=== PATIENT | male | born 1955 | race Caucasian/White ===

== ENCOUNTER → 2017-02-09 | Outpatient (CLI) | payer OTHER ==
--- NOTE | 2017-02-09 15:17 | XR ---
EXAMINATION TYPE: XR hand complete LT DATE OF EXAM: 02/09/2017 CLINICAL HISTORY: pain TECHNIQUE: Frontal, lateral and oblique images of the left hand are obtained. COMPARISON: None. FINDINGS: There is no acute fracture/dislocation evident. The joint spaces appear within normal limi ts. The overlying soft tissue appears unremarkable. IMPRESSION: There is no acute fracture or dislocation. ICD 10 NO FRACTURE, INITIAL EVALUATION
== END | disposition home or self-care (01) ==
LOC: RADXRMAIN 14:56
PROVIDERS: ATTEND Emergency Medicine
DX: S67.22XA Crushing injury of left hand, initial encounter (principal)

== ENCOUNTER 2017-06-24 07:55 | Day surgery (SDC) | payer BC ==
[2017-06-16 16:01] VITALS: BMI 28.8
[~2017-06-24 07:55] MED LIST: LACTATED RINGERS 1,000 ML IV SCH
[2017-06-24 08:18] LABS: Glucose,Whole Blood 172 mg/dL (75-99)
[2017-06-24] MEDS ORDERED: PROPOFOL 10 MG/ML 20 ML VIAL IV ONE (09:01)
[2017-06-24] MEDS ORDERED: fentaNYL (PF) 50 MCG/ML 2 ML AMP ONE (09:01)
--- NOTE | 2017-06-24 09:36 | P.PCN ---
Date of Procedure: 06/24/17 Procedure(s) Performed: Procedure: Colonoscopy and biopsy. Preoperative diagnosis: Screening for neoplasia. Postoperative diagnosis: 1. Sigmoid diverticulosis with no evidence of acute diverticulitis or strictures. 2. Diminutive polyp around the hepatic flexure biopsied. 3. No large polyps, cancer or bleeding. Preparation: HalfLytely prep. Sedation: Was provided by anesthesia. Brief clinical history: The patient is 62-year-old male who is referred for this evaluation for screening for neoplasia. He had a prior exam more than 20 years ago. He has no abdominal complaints, bleeding or anemia. Procedure: With the patient on his left lateral decubitus position and after informed consent and adequate sedation, the perianal area was inspected and it did not show any fissures or fistulas. There were no masses felt on digital rectal examination. The Olympus CFQ 160L video colonoscope was then inserted in the rectum in the usual fashion and advanced to the cecum. There was a diminutive polyp around the hepatic flexure which was biopsied. There were no large polyps or cancer. The mucosa appeared healthy. Several diverticular orifices were seen scattered in the sigmoid with no evidence of acute diverticulitis or strictures. I retroflexed the endoscope in the rectum before the endoscope was withdrawn. The patient tolerated the procedure well. Plan: The patient was reassured. Discussed dietary measures. Will await pathology results. I anticipate repeating this colonoscopy in 5 years depending on his pathology results. He will follow up with you as planned.
[2017-06-24 16:30] VITALS: BP 134/94; PULSE 74; RESP 18; TEMP 97.3
== END 2017-06-24 10:15 | disposition home or self-care (01) ==
LOC: ORWHC2ENDO 07:55
DX: Z12.11 Encounter for screening for malignant neoplasm of colon (principal); K63.5 Polyp of colon; K57.30 Diverticulosis of large intestine without perforation or abscess without bleeding; K21.9 Gastro-esophageal reflux disease without esophagitis; E11.9 Type 2 diabetes mellitus without complications; I10 Essential (primary) hypertension; I25.10 Atherosclerotic heart disease of native coronary artery without angina pectoris; I25.2 Old myocardial infarction; Z79.82 Long term (current) use of aspirin; Z79.84 Long term (current) use of oral hypoglycemic drugs; Z79.899 Other long term (current) drug therapy; Z87.891 Personal history of nicotine dependence; Z95.5 Presence of coronary angioplasty implant and graft
CPT/HCPCS: 45380; 88305; J3010; J2704

== ENCOUNTER 2020-09-20 09:06 | Emergency (ER) | payer BC ==
[2020-09-20] MEDS ORDERED: SODIUM CHLORIDE 0.9% 1,000 ML IV STA (09:28)
[2020-09-20] MEDS ORDERED: METOCLOPRAMIDE 5 MG/ML 2 ML VIAL IVP STA (09:30)
[2020-09-20] MEDS ORDERED: MECLIZINE 12.5 MG TAB PO STA (09:30)
[2020-09-20 09:58] LABS: Basophils % (A) 0 %; Eosinophils # (A) 0.1 k/uL (0-0.7); Eosinophils % (A) 2 %; HCT 42.6 % (39.0-53.0); HGB 14.6 gm/dL (13.0-17.5); Lymphocytes % (A) 17 %; MCH 28.9 pg (25.0-35.0); MCHC 34.2 g/dL (31.0-37.0); MCV 84.3 fL (80.0-100.0); Mean Platelet Volume 7.1; Monocytes # (A) 0.4 k/uL (0-1.0); Monocytes % (A) 6 %; Neutrophils # (A) 4.3 k/uL (1.3-7.7); Neutrophils % (A) 74 %; Platelet Count 204 k/uL (150-450); RBC 5.05 m/uL (4.30-5.90); RDW 14.1 % (11.5-15.5); WBC 5.8 k/uL (3.8-10.6)
[2020-09-20 10:07] LABS: INR 0.9 (<1.2); Partial Thromboplastin Time 23.3 sec (22.0-30.0); Prothrombin Time 9.7 sec (9.0-12.0)
[2020-09-20 10:09] LABS: ALT 27 U/L (4-49); AST 27 U/L (17-59); African American GFR (CKD) >90 (>60 ml/min/1.73 sqM); Alkaline Phosphatase 94 U/L (38-126); Anion Gap 8 mmol/L; Blood Urea Nitrogen 19 mg/dL (9-20); Calcium 9.5 mg/dL (8.4-10.2); Carbon Dioxide 28 mmol/L (22-30); Chloride 102 mmol/L (98-107); Glucose 224 mg/dL (74-99); Non-African American GFR(CKD) >90 (>60 ml/min/1.73 sqM); Potassium 4.3 mmol/L (3.5-5.1); Sodium 138 mmol/L (137-145); Total Bilirubin 1.2 mg/dL (0.2-1.3); Total Protein 6.7 g/dL (6.3-8.2)
--- NOTE | 2020-09-20 10:09 | XR ---
EXAMINATION TYPE: XR chest 2V DATE OF EXAM: 09/20/2020 COMPARISON: None HISTORY: 65-year-old male syncope TECHNIQUE: AP and lateral views FINDINGS: Heart borderline enlarged. Some focal patchy opacity posterior base on the lateral view and also ayan pheral right midlung on the frontal view. No pleural effusion. IMPRESSION: Some patchy opacity peripheral right midlung and posterior base. Early developing infiltrates not exc luded.
--- NOTE | 2020-09-20 10:27 | ED ---
General Adult HPI - General Chief complaint: Dizziness Stated complaint: Dizziness, syncope Time Seen by Provider: 09/20/20 09:16 Source: patient Mode of arrival: ambulatory Limitations: no limitations - History of Present Illness Initial comments: Patient is a 65-year-old male, history of diabetes, hypertension, NC, presenting to the emergency department after he had 2 syncopal events at work today. Patient states last night when he was trying to go to sleep he turned his head over to the side and the broom started moving. Patient states he was able to lay flat on his back without symptoms but every time he would move on the side to symptoms started again. Patient states he was able to fall asleep, he felt better this morning so he went to work. 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 Patient states when he came to and rested in the chair a little bit he felt improvement but then stood up and had another event which brought him to his knees. Patient's coworkers then called EMS for transport. He states currently at this time he is feeling a little lightheaded but the broom is not spinning at this time. He is nauseous, no chest pain or shortness of breath. He denies a blurry vision, no recent fevers or chills. He states he was diagnosed with Covid on 09/04/2020. He states his symptoms have been mild and he feels like he has recovered. He denies any changes in the medications. He has no further complaints. Upon arrival to the ER his vitals are stable. - Related Data Home Medications Medication Instructions Recorded Confirmed Aspirin 162 mg PO DAILY 06/16/17 09/20/20 Atorvastatin Calcium [Lipitor] 40 mg PO HS 06/16/17 09/20/20 Isosorbide Mononitrate ER [Imdur] 60 mg PO DAILY 06/16/17 09/20/20 glipiZIDE [Glucotrol] 10 mg PO AC-BID 06/16/17 09/20/20 Albuterol Sulfate [Proair Hfa] 2 puff INHALATION RT-Q4H PRN 09/20/20 09/20/20 Cholecalciferol [Vitamin D3 (25 50 mcg PO DAILY 09/20/20 09/20/20 Mcg = 1000 Iu)] Cyanocobalamin [Vitamin B-12] 500 mcg PO DAILY 09/20/20 09/20/20 Losartan Potassium 100 mg PO DAILY 09/20/20 09/20/20 Metoprolol Tartrate [Lopressor] 75 mg PO BID 09/20/20 09/20/20 Nitroglycerin Sl Tabs [Nitrostat] 0.4 mg SUBLINGUAL Q5M PRN 09/20/20 09/20/20 hydroCHLOROthiazide 25 mg PO DAILY 09/20/20 09/20/20 Previous Rx's Medication Instructions Recorded Meclizine [Antivert] 25 mg PO BID PRN #20 tab 09/20/20 Allergies Allergy/AdvReac Type Severity Reaction Status Date / Time No Known Allergies Allergy Verified 09/20/20 10:35 Review of Systems ROS Statement: Those systems with pertinent positive or pertinent negative responses have been documented in the HPI. ROS Other: All systems not noted in ROS Statement are negative. Past Medical History Past Medical History: Diabetes Mellitus, Hyperlipidemia, Hypertension, Myocardial Infarction (NC) Last Myocardial Infarction Date:: 2001 History of Any Multi-Drug Resistant Organisms: None Reported Past Surgical History: Heart Catheterization With Stent Additional Past Surgical History / Comment(s): heart stents x2 Past Anesthesia/Blood Transfusion Reactions: No Reported Reaction Additional Past Anesthesia/Blood Transfusion Reaction / Comment(s): states "had excruciating pain in the abdomen post colonoscopy in the past." Date of Last Stent Placement:: 2001 Past Psychological History: No Psychological Hx Reported Smoking Status: Former smoker Past Alcohol Use History: None Reported Past Drug Use History: None Reported - Past Family History Mother Family Medical History: No Reported History Father Family Medical History: Cancer Additional Family Medical History / Comment(s): liver General Exam - General Exam Comments Initial Comments: GENERAL: Patient is well-developed and well-nourished. Patient is nontoxic and in no acute distress. HEAD: Atraumatic, normocephalic. EYES: Pupils equal round and reactive to light, extraocular movements intact, sclera anicteric, conjunctiva are normal. Eyelids were unremarkable. ENT: TMs normal, nares patent, oropharynx clear without exudates. Moist mucous membranes. NECK: Normal range of motion, supple without lymphadenopathy or JVD. LUNGS: Unlabored respirations. Breath sounds clear to auscultation bilaterally and equal. No wheezes rales or rhonchi. HEART: Regular rate and rhythm without murmurs, rubs or gallops. ABDOMEN: Soft, nontender, normoactive bowel sounds. No guarding, no rebound. No masses appreciated. : Deferred MUSCULOSKELETAL: Normal extremities with adequate strength and normal range of motion, no pitting or edema. No clubbing or cyanosis. NEUROLOGICAL: Patient is alert and oriented x 3. Motor and sensory are also intact. Cranial nerves II through XII grossly intact. Symmetrical smile. Normal speech, normal gait. PSYCH: Normal mood, normal affect. SKIN: Warm, Dry, normal turgor, no rashes or lesions noted. Limitations: no limitations Course Vital Signs 09/20/20 09/20/20 09/20/20 09:11 11:25 11:29 Temperature 98 F Pulse Rate 72 70 66 Respiratory 18 18 20 Rate Blood Pressure 152/98 135/79 127/86 O2 Sat by Pulse 97 100 99 Oximetry EKG Findings - EKG Comments: EKG Findings:: Normal sinus rhythm, normal ECG, no signs of acute process. Ventricular rate 72, IL interval 148, QTC 416. Medical Decision Making - Medical Decision Making Patient is a 65-year-old male here for having syncopal event at work today. He was dizzy yesterday, symptoms seem consistent with vertigo. His exam today is unremarkable, no acute findings. EKG is normal. His vital signs are stable. Labs are normal, troponin is normal, glucose slightly elevated to 24, urine shows no evidence of infection. Chest x-ray shows some patchy opacity to perform a right midline, patient is recovering from Covid. Patient has been able to ambulate to the restroom without symptoms. His vital signs remained stable. I discussed with patient that his symptoms seem consistent with vertigo. I do recommend staying home from work until clearance from his family doctor. I will give him a prescription for meclizine. He is stable for discharge He is in agreement with this plan of care. Strict return parameters were discussed with the patient and he verbalized understanding. Case discussed with Dr. Cai. - Lab Data Result diagrams: 09/20/20 09:23 09/20/20 09:23 Lab Results 09/20/20 09/20/20 09/20/20 Range/Units 09:23 09:23 09:23 WBC 5.8 (3.8-10.6) k/uL RBC 5.05 (4.30-5.90) m/uL Hgb 14.6 (13.0-17.5) gm/dL Hct 42.6 (39.0-53.0) % MCV 84.3 (80.0-100.0) fL MCH 28.9 (25.0-35.0) pg MCHC 34.2 (31.0-37.0) g/dL RDW 14.1 (11.5-15.5) % Plt Count 204 (150-450) k/uL MPV 7.1 Neutrophils % 74 % Lymphocytes % 17 % Monocytes % 6 % Eosinophils % 2 % Basophils % 0 % Neutrophils # 4.3 (1.3-7.7) k/uL Lymphocytes # 1.0 (1.0-4.8) k/uL Monocytes # 0.4 (0-1.0) k/uL Eosinophils # 0.1 (0-0.7) k/uL Basophils # 0.0 (0-0.2) k/uL PT 9.7 (9.0-12.0) sec INR 0.9 (<1.2) APTT 23.3 (22.0-30.0) sec Sodium (137-145) mmol/L Potassium (3.5-5.1) mmol/L Chloride (98-107) mmol/L Carbon Dioxide (22-30) mmol/L Anion Gap mmol/L BUN (9-20) mg/dL Creatinine (0.66-1.25) mg/dL Est GFR (CKD-EPI)AfAm (>60 ml/min/1.73 sqM) Est GFR (CKD-EPI)NonAf (>60 ml/min/1.73 sqM) Glucose (74-99) mg/dL Calcium (8.4-10.2) mg/dL Total Bilirubin (0.2-1.3) mg/dL AST (17-59) U/L ALT (4-49) U/L Alkaline Phosphatase (38-126) U/L Troponin I (0.000-0.034) ng/mL Total Protein (6.3-8.2) g/dL Albumin (3.5-5.0) g/dL Urine Color Light Yellow Urine Appearance Clear (Clear) Urine pH 6.5 (5.0-8.0) Ur Specific [place] 1.013 (1.001-1.035) Urine Protein Negative (Negative) Urine Glucose (UA) 3+ H (Negative) Urine Ketones Negative (Negative) Urine Blood Negative (Negative) Urine Nitrite Negative (Negative) Urine Bilirubin Negative (Negative) Urine Urobilinogen <2.0 (<2.0) mg/dL Ur Leukocyte Esterase Negative (Negative) 09/20/20 09/20/20 Range/Units 09:23 09:23 WBC (3.8-10.6) k/uL RBC (4.30-5.90) m/uL Hgb (13.0-17.5) gm/dL Hct (39.0-53.0) % MCV (80.0-100.0) fL MCH (25.0-35.0) pg MCHC (31.0-37.0) g/dL RDW (11.5-15.5) % Plt Count (150-450) k/uL MPV Neutrophils % % Lymphocytes % % Monocytes % % Eosinophils % % Basophils % % Neutrophils # (1.3-7.7) k/uL Lymphocytes # (1.0-4.8) k/uL Monocytes # (0-1.0) k/uL Eosinophils # (0-0.7) k/uL Basophils # (0-0.2) k/uL PT (9.0-12.0) sec INR (<1.2) APTT (22.0-30.0) sec Sodium 138 (137-145) mmol/L Potassium 4.3 (3.5-5.1) mmol/L Chloride 102 (98-107) mmol/L Carbon Dioxide 28 (22-30) mmol/L Anion Gap 8 mmol/L BUN 19 (9-20) mg/dL Creatinine 0.76 (0.66-1.25) mg/dL Est GFR (CKD-EPI)AfAm >90 (>60 ml/min/1.73 sqM) Est GFR (CKD-EPI)NonAf >90 (>60 ml/min/1.73 sqM) Glucose 224 H (74-99) mg/dL Calcium 9.5 (8.4-10.2) mg/dL Total Bilirubin 1.2 (0.2-1.3) mg/dL AST 27 (17-59) U/L ALT 27 (4-49) U/L Alkaline Phosphatase 94 (38-126) U/L Troponin I <0.012 (0.000-0.034) ng/mL Total Protein 6.7 (6.3-8.2) g/dL Albumin 4.0 (3.5-5.0) g/dL Urine Color Urine Appearance (Clear) Urine pH (5.0-8.0) Ur Specific [place] (1.001-1.035) Urine Protein (Negative) Urine Glucose (UA) (Negative) Urine Ketones (Negative) Urine Blood (Negative) Urine Nitrite (Negative) Urine Bilirubin (Negative) Urine Urobilinogen (<2.0) mg/dL Ur Leukocyte Esterase (Negative) Disposition Clinical Impression: Vertigo, Syncope Disposition: HOME SELF-CARE Condition: Stable Instructions (If sedation given, give patient instructions): Vertigo (ED) Additional Instructions: Please return to the Emergency Department if symptoms worsen or any other concerns. May take meclizine for any further symptoms. Follow-up with your family doctor in 1-3 days. PLease stay off work until clearance from your family doctor. Prescriptions: Meclizine [Antivert] 25 mg PO BID PRN #20 tab PRN Reason: vertigo Is patient prescribed a controlled substance at d/c from ED?: No Referrals: Daryl Aguayo MD [Primary Care Provider] - 1-2 days
[2020-09-20 11:53] LABS: Appearance,Urine Clear (Clear); Bilirubin,Urine Negative (Negative); Blood,Urine Negative (Negative); Color,Urine Light Yellow; Glucose,Urine (UA) 3+ (Negative); Ketones,Urine Negative (Negative); Leukocyte Esterase,Urine Negative (Negative); Nitrite,Urine Negative (Negative); PH, Urine 6.5 (5.0-8.0); Protein,Urine Negative (Negative); Specific Gravity,Urine 1.013 (1.001-1.035); Urobilinogen,Urine <2.0 mg/dL (<2.0)
[2020-09-20 13:11] VITALS: BP 120/76; PULSE 75; RESP 18; TEMP 98.2
== END 2020-09-20 13:08 | disposition home or self-care (01) ==
LOC: EC 09:06
DX: R42 Dizziness and giddiness (principal); R55 Syncope and collapse; R11.0 Nausea; E11.9 Type 2 diabetes mellitus without complications; I10 Essential (primary) hypertension; E78.5 Hyperlipidemia, unspecified; I25.2 Old myocardial infarction; Z87.891 Personal history of nicotine dependence; Z79.84 Long term (current) use of oral hypoglycemic drugs; Z79.82 Long term (current) use of aspirin
CPT/HCPCS: 36415; 93005; 80053; 84484; 85025; 85610; 85730; 81003; 71046; 99284; 96374; 96361 ×2; J2765

== ENCOUNTER → 2023-06-18 | Day surgery (SDC) | payer MEDICARE, OTHER ==
[2023-06-11 16:38] VITALS: BMI 30.5
[~2023-06-18] MED LIST changes: +ETOMIDATE 2 MG/ML 10 ML VIAL ONE; +LIDOCAINE 1% INJ 10MG/ML (20 ML MDV) ONE; +PROPOFOL 10 MG/ML 20 ML VIAL IV ONE
[2023-06-18 09:55] VITALS: TEMP 97
[2023-06-18 10:02] LABS: Glucose,Whole Blood 228 mg/dL (70-110)
--- NOTE | 2023-06-18 10:33 | P.PCN ---
Date of Procedure: 06/18/23 Procedure(s) Performed: BRIEF HISTORY: Patient is a 68-year-old pleasant white male scheduled for an elective colonoscopy as a part of evaluation of prior history of colon polyps. Last colonoscopy was 5 years ago. PROCEDURE PERFORMED: Colonoscopy with snare polypectomy. PREOPERATIVE DIAGNOSIS: History of colon polyps. IV sedation per Anesthesia. PROCEDURE: After informed consent was obtained, the patient, was brought into the endoscopy unit. IV sedation was administered by Anesthesia under continuous monitoring. Digital rectal examination was normal. Initially the Olympus CF-160 flexible video colonoscope was then inserted in the rectum, gradually advanced into the cecum without any difficulty. Careful examination was performed as the scope was gradually being withdrawn. Ileocecal valve and the appendiceal orifice were visualized and appeared normal. Prep was fair. Mucosa of the cecum, we normal. In the ascending colon there were 2 polyps measuring 3 mm in size both of which were removed by cold snare polypectomy. In the transverse colon there were 7 polyps measuring between 3 mm to 6 cm size all of which were removed by cold snare polypectomy. In the descending colon there was a 4 mm polyp removed by cold snare polypectomy. Scattered sigmoid diverticulosis seen. The sigmoid colon, and rectum appeared normal. in the proximal rectum there was a 8 mm polyp removed by cold snare polypectomy. Retroflexion was performed in the rectum and no lesions were seen. The patient tolerated the procedure well. IMPRESSION: 3 mm 2 ascending colon polyp status post polypectomy 7 polyps in the transverse colon measuring between 3 mm to 6 mm in size status post polypectomy 4 mm descending colon polyp status post polypectomy 8 mm rectal polyp status post polypectomy RECOMMENDATIONS: Findings of this examination were discussed with the patient as well as his family.. He was advised to follow with the biopsy results. If the biopsy results adenoma he can have a repeat colonoscopy in 3 years.
[2023-06-18 11:09] VITALS: BP 147/87; PULSE 63; RESP 14
== END ==
LOC: ORWHC2ENDO 09:06
PROVIDERS: ATTEND Internal Medicine Gastroenterology
DX: Z12.11 Encounter for screening for malignant neoplasm of colon (principal); D12.2 Benign neoplasm of ascending colon; D12.3 Benign neoplasm of transverse colon; D12.4 Benign neoplasm of descending colon; D12.8 Benign neoplasm of rectum; I25.2 Old myocardial infarction; I25.10 Atherosclerotic heart disease of native coronary artery without angina pectoris; I10 Essential (primary) hypertension; E78.5 Hyperlipidemia, unspecified; Z95.5 Presence of coronary angioplasty implant and graft; G47.33 Obstructive sleep apnea (adult) (pediatric); E11.9 Type 2 diabetes mellitus without complications; Z79.84 Long term (current) use of oral hypoglycemic drugs; Z79.899 Other long term (current) drug therapy; Z86.010 Personal history of colon polyps
CPT/HCPCS: 88305; 45385; J2001; J2704